=== PATIENT | male | born 2000 | race Caucasian/White ===

== ENCOUNTER 2020-06-14 17:22 | Emergency (ER) | payer OTHER, SELFPAY ==
[2020-06-14 17:32] VITALS: BP 116/59; PULSE 80; RESP 15; TEMP 36.4; O2SAT 99; BMI 21.2
--- NOTE | 2020-06-14 18:24 | ED.HA ---
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 He states he has had headaches in the past in the headache that he currently has feels like prior headaches him. He was a gradual onset 3 days ago. No fevers. No trauma. Has taken some Tylenol for the headache without much improvement. He was started on Cymbalta today by his primary doctor because of depression issues however his headache started prior to the onset of this medication. Related Data Allergies Allergy/AdvReac Type Severity Reaction Status Date / Time Penicillins Allergy Verified 06/14/20 17:32 Review of Systems Constitutional Constitutional: Denies fever(s) and Reports headache(s) Eyes Eyes: Denies change in vision ENT Ears, Nose, Mouth, and Throat: Reports headache(s) and Denies sore throat Cardiovascular Cardiovascular: Denies chest pain and Denies dyspnea Respiratory Respiratory: Denies dyspnea Gastrointestinal Gastrointestinal: Denies abdominal pain, Denies nausea and Denies vomiting Genitourinary Genitourinary: Denies dysuria Genitourinary: Denies dysuria Musculoskeletal Musculoskeletal: Denies arthralgias and Denies myalgias Integumentary/Breasts Skin/Breast: Denies rash Neurologic Neurologic: Denies behavioral changes and Reports headache(s) Psychiatric Psychiatric: Denies behavioral changes and Reports difficulty concentrating Hematologic/Lymphatic On Anticoagulants: No Allergic/Immunologic Allergic/Immunologic: Denies urticaria Patient History Medical History Depression Social History Smoking Status: Current every day smoker Smoking Status: Current every day smoker tobacco type: vaping alcohol intake frequency: holidays/special occasions only Substance Use Type: does not use Exam Initial Vital Signs Initial Vital Signs: Vital Signs Temperature 97.6 F 06/14/20 17:32 Pulse Rate 80 06/14/20 17:32 Respiratory Rate 15 06/14/20 17:32 Blood Pressure 116/59 L 06/14/20 17:32 Pulse Oximetry 99 06/14/20 17:32 Const General: cooperative and comfortable Limitations: mental status not altered [facility] Head: normal to inspection and normocephalic Eyes General: appearance normal, both eyes and all related structures Resp Effort & Inspection: normal respiratory effort Cardio Rate: regular rate GI Inspection: non-distended Skin Lesions: no lesions Rashes: no rashes Neuro General: patient alert and patient awake Cognition: normal cognition Speech: speech normal Extrem General: normal to inspection and capillary refill normal Psych Appearance: grossly normal and well kempt Course Orders Ordered: Discontinued Medications Acetaminophen (Acetaminophen 325 Mg Tablet) 975 mg PO NOW ONE Stop: 06/14/20 18:26 Last Admin: 06/14/20 18:57 Dose: 975 mg Documented by: RACIEL Ketorolac Tromethamine (Ketorolac 60 Mg/2 Ml Vial) 30 mg IM NOW ONE Stop: 06/14/20 18:26 Last Admin: 06/14/20 18:58 Dose: 30 mg Documented by: RACIEL Vital Signs Vital signs: Vital Signs - 8 hr 06/14/20 17:32 06/14/20 19:48 Temperature 97.6 F Pulse Rate 80 67 Respiratory Rate 15 Blood Pressure 116/59 L 109/56 L Pulse Oximetry 99 97 MDM - Headache MDM Narrative Medical decision making narrative: He is nontoxic appearing. Has a normal neurologic exam. Discussed with him options about treating his headache and he stated that he would rather try the oral medication in avoid an IV. After administration the medicine he stated that his headache was gone. He denied SI or HI. Will discharge home with follow-up with his primary provider. He was given return precautions. He expressed understanding agreement. Discharge Plan Departure Patient Disposition: Home Clinical Impression: Headache Instructions: DI for Headache Activity Restrictions/Additional Instructions: I recommend you continue all of your medications as directed. Contact your primary provider for a follow-up. Return to the emergency department for any new or worsening symptoms
[2020-06-14] MEDS: ACETAMINOPHEN 325 MG TABLET 975 MG PO (18:57)
[2020-06-14] MEDS: KETOROLAC 60 MG/2 ML VIAL 30 MG IM (18:58)
[2020-06-14 19:48] VITALS: BP 109/56; PULSE 67; O2SAT 97
== END 2020-06-14 19:48 | disposition home or self-care (01) ==
PROVIDERS: Emergency Provider Emergency Medicine
DX: R51.9 Headache, unspecified (principal)
CPT/HCPCS: 96372; 99283; J1885

== ENCOUNTER 2021-07-18 20:10 | Emergency (ER) | payer OTHER, SELFPAY ==
[2021-07-18 20:20] VITALS: BP 134/65; PULSE 105; RESP 22; TEMP 38; O2SAT 96
[2021-07-18] MEDS: IBUPROFEN 400 MG TABLET 800 MG PO (20:38)
[2021-07-18] MEDS: ACETAMINOPHEN 325 MG TABLET 975 MG PO (20:38)
[2021-07-18 21:17] LABS: Influenza A - CEPHEID Flu A POSITIVE (NEGATIVE); Influenza B - CEPHEID Flu B NEGATIVE (NEGATIVE)
[2021-07-18 21:21] LABS: COVID-19 CEPHEID PCR (VTM/NP) Negative (Negative)
--- NOTE | 2021-07-18 21:48 | ED_ITS ---
HPI - General Adult General Chief complaint: Fever Stated complaint: fever, cough, headache, unsteady on feet Time Seen by Provider: 07/18/21 21:45 Source: patient Mode of arrival: Ambulatory History of Present Illness HPI narrative: Otherwise healthy 21-year-old male here for evaluation of approximately 3 days of fever cough headache and chills and lightheadedness. No known sick contacts. No interventions prior to arrival. Related Data Allergies Allergy/AdvReac Type Severity Reaction Status Date / Time Penicillins Allergy Verified 06/14/20 17:32 Review of Systems Constitutional Constitutional: Reports as per HPI and Reports system reviewed and no additional complaints, except as documented ENT Ears, Nose, Mouth, and Throat: Reports system reviewed and no additional complaints, except as documented Cardiovascular Cardiovascular: Reports system reviewed and no additional complaints, except as documented Respiratory Respiratory: Reports as per HPI and Reports system reviewed and no additional complaints, except as documented Integumentary/Breasts Skin/Breast: Reports system reviewed and no additional complaints, except as documented Hematologic/Lymphatic On Anticoagulants: No Patient History Medical History Depression Social History Smoking Status: Former smoker Smoking Status: Former smoker tobacco type: vaping alcohol intake frequency: holidays/special occasions only Substance Use Type: does not use Exam Initial Vital Signs Initial Vital Signs: Vital Signs Temperature 100.4 F H 07/18/21 20:20 Pulse Rate 105 H 07/18/21 20:20 Respiratory Rate 22 07/18/21 20:20 Blood Pressure 134/65 07/18/21 20:20 Pulse Oximetry 96 07/18/21 20:20 Const General: cooperative and healthy appearing [facility] Head: normal to inspection and normocephalic Resp Effort & Inspection: normal respiratory effort Auscultation: clear to auscultation bilaterally Cardio Rate: regular rate Rhythm: regular rhythm Skin General: no rashes or lesions noted Neuro General: patient alert, patient awake and moves all extremities Extrem General: normal to inspection and capillary refill normal Course Orders Ordered: ED Orders 07/18/21 20:30 Covid-19 + FLU A/B by PCR Stat Discontinued Medications Acetaminophen (Acetaminophen 325 Mg Tablet) 975 mg PO NOW ONE Stop: 07/18/21 20:28 Last Admin: 07/18/21 20:38 Dose: 975 mg Documented by: EMELY Ibuprofen (Ibuprofen 400 Mg Tablet) 800 mg PO NOW ONE Stop: 07/18/21 20:28 Last Admin: 07/18/21 20:38 Dose: 800 mg Documented by: EMELY Vital Signs Vital signs: Vital Signs - 8 hr 07/18/21 20:20 Temperature 100.4 F H Pulse Rate 105 H Respiratory Rate 22 Blood Pressure 134/65 Pulse Oximetry 96 Medical Decision Making Lab Data Labs: Lab Results 07/18/21 Range/Units 20:30 SARS-CoV-2 (PCR) Negative (Negative) Influenza A (RT-PCR) Flu a positive H (NEGATIVE) Influenza B (RT-PCR) Flu b negative (NEGATIVE) MDM Narrative Medical decision making narrative: Patient is nontoxic appearing. His testing is positive for flu A which does correspond to the patient's presenting symptoms. He is outside the window for starting Tamiflu. Was given instructions for treatment and also return precautions. He expressed understanding and agreement. Discharge Plan Departure Patient Disposition: Home Clinical Impression: Influenza Instructions: Influenza Activity Restrictions/Additional Instructions: You can take Tylenol and or ibuprofen for any fevers or body aches. Be sure to increase your fluid intake. Contact your primary doctor for a follow-up. Return to the emergency department for any new or worsening symptoms. Referrals: Alen Hager DO [Primary Care Provider] -
--- NOTE | 2021-07-18 21:54 | PC.NURSE ---
assessment per doctor
== END 2021-07-18 21:55 | disposition home or self-care (01) ==
PROVIDERS: Emergency Provider Emergency Medicine; PCP Family Medicine
DX: J10.1 Influenza due to other identified influenza virus with other respiratory manifestations (principal); Z20.822 Contact with and (suspected) exposure to COVID-19
CPT/HCPCS: 87635; 99282; 99283; C9803